=== PATIENT | male | born 1970 | race African-American/Black ===

== ENCOUNTER 2016-07-03 20:47 | Emergency (ER) | payer MEDICAID ==
[~2016-07-03] VITALS: Ht 182.9 cm; Wt 77.5 kg
[2016-07-03 20:53] VITALS: Ht 182.9 cm; Wt 77.5 kg
[2016-07-03] MEDS ORDERED: ASPIRIN 325 MG TAB PO STA (22:50)
[2016-07-03] MEDS ORDERED: AZIT250T6 PO (22:52)
[2016-07-03 23:22] LABS: ADD SCAN DIFF NO
[2016-07-03 23:25] LABS: BASOPHILS % 0.2 % (0.0-2.0); EOSINOPHILS # 0.5 10^3/ul (0.0-0.5); EOSINOPHILS % 5.6 % (0.0-7.0); HEMATOCRIT 40.9 % (42.0-52.0); HEMOGLOBIN 14.2 g/dl (14.0-18.0); LYMPHOCYTES # 1.2 10^3/ul (0.8-2.9); LYMPHOCYTES % 14.6 % (15.0-51.0); MEAN CORPUSCULAR HGB CONC 34.7 g/dl (32.0-37.0); MEAN CORPUSCULAR VOLUME 86.5 fl (82.0-101.0); MEAN PLATELET VOLUME 8.5 fl (7.4-10.4); MONOCYTE # 1.1 10^3/ul (0.3-0.9); MONOCYTES % 12.7 % (0.0-11.0); NEUTROPHIL # 5.6 10^3/ul (1.6-7.5); NEUTROPHILS % 66.1 % (39.0-77.0); PLATELET COUNT 263 10^3/UL (140-415); RED BLOOD COUNT 4.73 10^6/ul (4.70-6.10); RED CELL DISTRIBUTION WIDTH 11.9 % (11.5-14.5); WHITE BLOOD COUNT 8.4 10^3/ul (4.8-10.8)
[2016-07-03 23:34] LABS: INR 1.1; PROTIME 14.2 Sec (12.2-14.2); PT RATIO 1.1
[2016-07-03 23:35] LABS: PARTIAL THROMBOPLASTIN TIME 36.7 Sec (25.0-35.0)
[2016-07-03 23:36] LABS: ANION GAP 11 (8-16); BLOOD UREA NITROGEN 10 mg/dl (7-20); CARBON DIOXIDE 27 mmol/L (21-31); CHLORIDE 95 mmol/L (97-110); CREATININE 1.02 mg/dl (0.61-1.24); GLUCOSE 182 mg/dl (70-220); POTASSIUM 3.6 mmol/L (3.5-5.1); SODIUM 129 mmol/L (135-144)
--- NOTE | 2016-07-03 23:44 | RADRPT ---
PROCEDURE: XR Chest. CLINICAL INDICATION: Chest pain. TECHNIQUE: Portable AP upright view of the chest was obtained. COMPARISON: None. FINDINGS: The cardiomediastinal silhouette is within normal limits. Abnormal opacity involving the medial asp ect of the right upper lobe cannot exclude an infiltrate, an overlying monitoring wire partially obs curing evaluation of this area. The left lung is clear. There is no evidence for pleural effusion, pneumothorax or pulmonary vascular congestion. The osseous structures are intact with no evidence for acute abnormality. RPTAT:HJJR IMPRESSION: Vague patchy infiltrate within the right upper lobe unable to exclude pneumonia in the proper clinic al setting. Follow-up evaluation is recommended. Physician Ed Date Time Electronically viewed and signed by Physician Ed on 07/03/2016 23:43 JR/
[2016-07-03 23:49] LABS: TROPONIN-I < 0.012 ng/ml (0.00-0.12)
[2016-07-04] MEDS ORDERED: NAPR-688 PO (01:32)
[2016-07-04] MEDS ORDERED: HYDR-906 PO (01:32)
[2016-07-04] MEDS ORDERED: AMOX1TAB10 PO (01:32)
--- NOTE | 2016-07-04 01:39 | ERD ---
ER Documentation Chief Complaint Date/Time DATE: 07/04/16 TIME: 01:34 Chief Complaint chest pain x 1 month, also c/o cough. HPI This 46-year-old male comes to the emergency room for right upper chest pain for 1 month with a cough. He has been seen in a clinic and 1 week ago was given azithromycin. He just finished it yesterday [birth year]. He has been more tired than usual but has not had fevers. He also has not particularly been short of breath. He has had no nausea vomiting and has been going to work. ROS All systems reviewed and are negative except as per history of present illness. Medications Home Meds Active Scripts Naproxen* (Naproxen*) 500 Mg Tablet, 500 MG PO BID Y for PAIN, #20 TAB Prov:CORDELL ZAVALETA DO 07/04/16 Hydrocodone/Acetaminophen ([place] 5-325 Tablet) 1 Each Tablet, 1 EACH PO Q6, #20 TAB Prov:CORDELL ZAVALETA DO 07/04/16 Amoxicillin/Potassium Clav (Amox-Clav 875-125 mg Tablet) 875-125 mg Tab, 1 TAB PO BID, #24 TAB Prov:WAQARCORDELL 07/04/16 Discontinued Reported Medications Azithromycin* (Azithromycin*) 250 Mg Tablet, 250 MG PO DAILY for 4 Days, #5 TAB TAKE 2TAB 1RST DAY AND THEN 1TAB DAILY 07/03/16 Allergies Allergies: Coded Allergies: No Known Drug Allergies (Verified Allergy, Unknown, 07/03/16) PMhx/Soc Medical and Surgical Hx: pt denies Surgical Hx History of Surgery: No Anesthesia Reaction: No Hx Neurological Disorder: No Hx Respiratory Disorders: Yes (acute bronchitis) Hx Cardiac Disorders: No Hx Psychiatric Problems: No Hx Miscellaneous Medical Probl: No Hx Alcohol Use: No Hx Substance Use: No Hx Tobacco Use: No Smoking Status: Never smoker Physical Exam Vitals Vital Signs Date Time Temp Pulse Resp B/P Pulse Ox O2 Delivery O2 Flow Rate FiO2 07/03/16 22:43 98.9 88 20 122/81 98 07/03/16 20:53 99.0 100 20 134/76 98 Physical Exam Const: [] No distress Head: Atraumatic Eyes: Normal Conjunctiva ENT: Normal External Ears, Nose and Mouth. Neck: Full range of motion..~ No meningismus. Resp: Clear to auscultation bilaterally Cardio: Regular rate and rhythm, no murmurs Abd: Soft, non tender, non distended. Normal bowel sounds Skin: No petechiae or rashes Ext: No cyanosis, or edema Neur: Awake and alert and oriented 3, no focal deficit Psych: Normal Mood and Affect Result Diagram: 07/03/16225807/03/162258 Results 24 hrs Laboratory Tests Test 07/03/16 22:59 White Blood Count 8.410^3/ul Red Blood Count 4.7310^6/ul Hemoglobin 14.2g/dl Hematocrit 40.9% Mean Corpuscular Volume 86.5fl Mean Corpuscular Hemoglobin 30.0pg Mean Corpuscular Hemoglobin Concent 34.7g/dl Red Cell Distribution Width 11.9% Platelet Count 28512^3/UL Mean Platelet Volume 8.5fl Neutrophils % 66.1% Lymphocytes % 14.6% Monocytes % 12.7% Eosinophils % 5.6% Basophils % 0.2% Nucleated Red Blood Cells % 0.0/100WBC Neutrophils # 5.610^3/ul Lymphocytes # 1.210^3/ul Monocytes # 1.110^3/ul Eosinophils # 0.510^3/ul Basophils # 0.010^3/ul Nucleated Red Blood Cells # 0.010^3/ul Prothrombin Time 14.2Sec Prothrombin Time Ratio 1.1 INR International Normalized Ratio 1.10 Activated Partial Thromboplast Time 36.7Sec Sodium Level 129mmol/L Potassium Level 3.6mmol/L Chloride Level 95mmol/L Carbon Dioxide Level 27mmol/L Anion Gap 11 Blood Urea Nitrogen 10mg/dl Creatinine 1.02mg/dl Glucose Level 182mg/dl Calcium Level 9.0mg/dl Troponin I < 0.012ng/ml Current Medications Medications (Trade) Dose Ordered Sig/Ame Route PRN Reason Start Time Stop Time Status Last Admin Dose Admin Aspirin (Aspirin) 325 mg ONCE STAT PO 07/03/16 22:50 07/03/16 22:52 DC 07/04/16 00:01 Procedures/MDM Community-acquired pneumonia 46-year-old male with no signs of systemic spread. Also has hyponatremia with no neurological symptoms. Chest pain is likely secondary to the pneumonia as it is in the correct location the patient has no ischemic changes on his EKG and a negative troponin. I am going to have him follow-up with his primary care doctor for asymptomatic hyponatremia. Patient is feeling well the emergency room. I am going to discharge him with naproxen, [place], Augmentin. I would have given Levaquin however the patient has just finished azithromycin covering for atypicals. Instructed her to return to the emergency room if he is not improving or if he has any worsening of symptoms. Pending his laboratories with sodium circled so that he can follow-up. Departure Diagnosis: Primary Impression: Chest pain Additional Impressions: Community acquired pneumonia Hyponatremia Condition: Stable Patient Instructions: Pneumonia, Chest Pain, Uncertain Cause Referrals: [facility] YOU HAVE RECEIVED A MEDICAL SCREENING EXAM AND THE RESULTS INDICATE THAT YOU DO NOT HAVE A CONDITION THAT REQUIRES URGENT TREATMENT IN THE EMERGENCY DEPARTMENT. FURTHER EVALUATION AND TREATMENT OF YOUR CONDITION CAN WAIT UNTIL YOU ARE SEEN IN YOUR DOCTORS OFFICE WITHIN THE NEXT 1-2 DAYS. IT IS YOUR RESPONSIBILITY TO MAKE AN APPOINTMENT FOR FOLOW-UP CARE. IF YOU HAVE A PRIMARY DOCTOR --you should call your primary doctor and schedule an appointment IF YOU DO NOT HAVE A PRIMARY DOCTOR YOU CAN CALL OUR PHYSICIAN REFERRAL HOTLINE AT IF YOU CAN NOT AFFORD TO SEE A PHYSICIAN YOU CAN CHOSE FROM THE FOLLOWING [facility] [address] [facility] [address] [facility] [address] [facility] [address] [facility]. [facility] [address] [facility] [facility]. [address] Additional Instructions: Call your primary care doctor TOMORROW for an appointment during the next 2-3 days.See the doctor sooner or return here if your condition worsens before your appointment time. CORDELL ZAVALETA DO Jul 04, 2016 01:39
[2016-07-04 02:51] VITALS: BP 125/83; PULSE 82; RESP 20; TEMP 98.9
== END 2016-07-04 02:51 | disposition home or self-care (01) ==
LOC: E/R 20:47
DX: R07.9 Chest pain, unspecified (principal); R40.2252 Coma scale, best verbal response, oriented, at arrival to emergency department; J18.9 Pneumonia, unspecified organism; E87.1 Hypo-osmolality and hyponatremia; R40.2142 Coma scale, eyes open, spontaneous, at arrival to emergency department; R40.2362 Coma scale, best motor response, obeys commands, at arrival to emergency department
CPT/HCPCS: 36415; 71010; 80048; 84484; 85025; 85610; 85730; 93005; Z7502; Z7610

== ENCOUNTER 2016-08-10 01:40 | Emergency (ER) | payer MEDICAID ==
[~2016-08-10] VITALS: Ht 182.9 cm; Wt 77.7 kg
[~2016-08-10 01:40] MED LIST: AMOX1TAB10 PO; HYDR-906 PO; NAPR-688 PO
[2016-08-10 01:41] VITALS: Ht 182.9 cm; Wt 77.7 kg
--- NOTE | 2016-08-10 03:25 | ERA ---
ER Documentation Chief Complaint Date/Time DATE: 08/10/16 TIME: 03:24 Chief Complaint ON AND OFF CHEST PAIN FOR PAST WEEK HPI The patient is a 46-year-old male, presenting to the ER because of intermittent right-sided chest pain for a week. He was treated for pneumonia about 4 weeks. He finished antibiotic and feel better, however the cough is still lingering. He denies any chest pain with exertion of vomiting or diaphoresis, denies dyspnea, abdominal pain, vomiting. He does not smoke, drinks socially Past medical/surgical history: None ROS All systems reviewed and are negative except as per history of present illness. Medications Home Meds Active Scripts Dextromethorphan Hb-Promethazine Hcl (Promethazine DM Syrup) 473 Ml Syrup, 10 ML PO Q6H Y for COUGH, #4 OZ Prov:PARI BANKS MD 08/10/16 Naproxen* (Naproxen*) 500 Mg Tablet, 500 MG PO BID Y for PAIN, #20 TAB Prov:CORDELL ZAVALETA DO 07/04/16 Hydrocodone/Acetaminophen ([place] 5-325 Tablet) 1 Each Tablet, 1 EACH PO Q6, #20 TAB Prov:CORDELL ZAVALETA DO 07/04/16 Amoxicillin/Potassium Clav (Amox-Clav 875-125 mg Tablet) 875-125 mg Tab, 1 TAB PO BID, #24 TAB Prov:CORDELL ZAVALETA DO 07/04/16 Allergies Allergies: Coded Allergies: No Known Drug Allergies (Verified Allergy, Unknown, 07/03/16) PMhx/Soc History of Surgery: No Anesthesia Reaction: No Hx Neurological Disorder: No Hx Respiratory Disorders: Yes (acute bronchitis) Hx Cardiac Disorders: No Hx Psychiatric Problems: No Hx Miscellaneous Medical Probl: No Hx Alcohol Use: No Hx Substance Use: No Hx Tobacco Use: No Physical Exam Vitals Vital Signs Date Time Temp Pulse Resp B/P Pulse Ox O2 Delivery O2 Flow Rate FiO2 08/10/16 01:41 98.6 84 18 129/77 98 Physical Exam Const: No acute distress. Head: Atraumatic. Eyes: Normal Conjunctiva. ENT: Normal External Ears, Nose and Mouth. Neck: Full range of motion. No meningismus. Resp: Clear to auscultation bilaterally. Cardio: Regular rate and rhythm, no murmurs. Abd: Soft, non distended, normal bowel sounds, non tender. Skin: No petechiae or rashes. Back: No midline or flank tenderness. Ext: No cyanosis, or edema. Neur: Awake and alert. No focal deficit Psych: Normal Mood and Affect. Procedures/MDM EKG: Read by emergency physician Rate/Rhythm: Normal Sinus Rhythm 70 beats/min QRS, ST, T-waves: No ST elevation, no T inversion Impression: Normal EKG MEDICAL MAKING DECISION: The patient is a 46-year-old male, presenting with minimal right-sided chest pain, worse with coughing and movement, most likely musculoskeletal in origin. The differential diagnoses considered include but are not limited to acute coronary syndrome, acute myocardial infarction, pericarditis, pulmonary embolism , aortic dissection, pneumonia, pleural effusion, pneumothorax, GERD, chest wall pain, empyema. Departure Diagnosis: Primary Impression: Chest pain Condition: Good Comments He was discharged with Phenergan DM I discussed the findings with the patient. I advised the patient to follow-up with the primary physician in about 1-2 days, sooner if needed and return if any concern. The patient's blood pressure was elevated (>120/80) but appears stable without evidence of hypertension emergency or urgency. The patient was counseled about the risks of hypertension and urged to pursue outpatient monitoring and therapy within a week with their primary care physician. PARI BANKS MD August 10, 2016 03:25
[2016-08-10] MEDS ORDERED: D-ME473S18 PO (04:00)
[2016-08-10 04:08] VITALS: BP 134/79; PULSE 70; RESP 16
== END 2016-08-10 04:20 | disposition home or self-care (01) ==
LOC: E/R 01:40
DX: R07.9 Chest pain, unspecified (principal)
CPT/HCPCS: 93005; Z7502; 99283